=== PATIENT | female | born 1985 | race Caucasian/White ===

== ENCOUNTER 2016-09-16 09:31 | Emergency (ER) | payer BC, OTHER ==
--- NOTE | 2016-09-16 10:18 | UC ---
Syncope/New Syncope HPI - HPI Summary HPI Summary: complaint of falling this morning approx 4:00 this morning was walking to the bathroom and had syncopal episode woke up and felt like she was in a tunnel felt disoriented, felt shaking and cold ,had a headache unwitnessed event layed on the floor for a while and then went back to sleep until 8:00 AM small laceration on her right elbow at this time she feels nauseated, weak ,"out of sorts" fatigued, dizziness, dull headache in entire head- no photophobia hx of syncopal episodes and seizures in her teen years similiar experiences- full workup at [facility] with no answer to etiology of seizures- no seizure 14 years ago hx of syncopal episodes in the morning- last episode 6 years ago - History Of Current Complaint Chief Complaint: UCGeneralIllness Stated Complaint: CUT ON ARM-FALL Time Seen by Provider: 09/16/16 10:09 Hx Obtained From: Patient Hx Last Menstrual Period: pt has an IUD and does not get a menses - Allergies/Home Medications Allergies/Adverse Reactions: Allergies Allergy/AdvReac Type Severity Reaction Status Date / Time No Known Allergies Allergy Verified 09/16/16 09:48 Home Medications: Home Medications ALPRAZolam TAB* [Xanax TAB*] 0.25 mg PO Q6H PRN 09/16/16 [History Confirmed ] Aspirin TAB* 325 mg PO DAILY PRN 09/16/16 [History Confirmed 09/16/16] Escitalopram Oxalate [Lexapro] 20 mg PO DAILY 09/16/16 [History Confirmed ] SUMAtriptan TAB* [Imitrex TAB*] 100 mg PO SEE INSTRUCTIONS PRN 09/16/16 [ History Confirmed 09/16/16] hydrOXYzine HCL TAB* [Atarax TAB*] 10 mg PO QID PRN 09/16/16 [History Confirmed 09/16/16] PMH/Surg Hx/FS Hx/Imm Hx Previously Healthy: Yes Neurological History Of: Reports: Seizures - syncopla episodes, Migraine - Surgical History Surgical History: None - Family History Known Family History: Positive: Other - mother with crohn's disease Negative: Hypertension, Diabetes, Seizure Disorder - Social History Occupation: Employed Full-time Lives: Alone Alcohol Use: None Substance Use Type: None Smoking Status (MU): Never Smoked Tobacco Review of Systems Constitutional: Fatigue Skin: Negative Eyes: Negative ENT: Negative Respiratory: Negative Cardiovascular: Negative Gastrointestinal: Other - nausea Genitourinary: Negative Motor: Negative Neurovascular: Negative Musculoskeletal: Negative Neurological: Headache Psychological: Negative All Other Systems Reviewed And Are Negative: Yes Physical Exam Triage Information Reviewed: Yes Appearance: No Pain Distress, Well-Nourished Vital Signs: Initial Vital Signs Temp 98.9 F 09/16/16 09:36 Pulse 59 09/16/16 09:36 Resp 14 09/16/16 09:36 BP 123/63 09/16/16 09:36 Pulse Ox 100 09/16/16 09:36 Vital Signs Reviewed: Yes Eyes: Positive: Conjunctiva Clear, Other: - PERRL, EOMI ENT: Positive: Pharynx normal, TMs normal Neck: Positive: Supple, No Lymphadenopathy Respiratory: Positive: Lungs clear, Normal breath sounds, No respiratory distress Cardiovascular: Positive: RRR, No Murmur, Pulses Normal, Brisk Capillary Refill Abdomen Description: Positive: Nontender, No Organomegaly, Soft Bowel Sounds: Positive: Present Musculoskeletal: Positive: No Edema Neurological: Positive: Alert, Other: - CN ll-Xll intact, negative Rhomberg Psychological Exam: Normal Skin Exam: Normal - elbow with 2 abrasions [id number], 3mm x 6mm- doesn't require closure Skin: Positive: Other Syncope Course/Dx - Course Course Of Treatment: exam completed. Orthostatic VS normal. ECG shows sinus bradycardia with ST elebvation probale normal early replorization pattern. CT scan without acute abnormalities. discussed case with Dr Balderas- will transfer to higher level of care-needs labwork. - Differential Dx/Diagnosis Differential Diagnosis/HQI/PQRI: Dysrhythmia, Hypovolemia, Seizure, Vasovagal Episode Provider Diagnoses: synocpal episode - Physician Notification/Consults Discussed Patient Care With: Shaneka Agosto RN- no provider sybil in the Ed. Dr Balderas Time Discussed With Above Provider: 12:32 Discharge - Discharge Plan Condition: Stable Disposition: TRANS HIGHER L OF CARE FAC Referrals: Salud Morataya MD [Primary Care Provider] -
[2016-09-16 10:52] VITALS: BP 128/64
--- NOTE | 2016-09-16 11:29 | RAD ---
INDICATION: Syncope, headache. COMPARISON: There are no prior studies available for comparison. TECHNIQUE: Contiguous axial sections of the brain were obtained from the skull base to the vertex without contrast. FINDINGS: The ventricles, cisterns and sulci are within normal limits. No significant focal abnormality or mass effect is seen. There is no evidence for hemorrhage. No significant focal osseous abnormality is seen. The visualized portion of the paranasal sinuses and mastoid air cells appear clear. IMPRESSION: NO EVIDENCE FOR ACUTE INTRACRANIAL ABNORMALITY.
== END 2016-09-16 12:35 | disposition short-term general hospital (02) ==
LOC: UCCORT 09:31
DX: R55 Syncope and collapse (principal); S50.311A Abrasion of right elbow, initial encounter; W18.30XA Fall on same level, unspecified, initial encounter; Y93.01 Activity, walking, marching and hiking; Y92.009 Unspecified place in unspecified non-institutional (private) residence as the place of occurrence of the external cause; R51 Headache
CPT/HCPCS: 70450; 93005; 99212; G0463

== ENCOUNTER 2016-09-16 13:26 | Observation (INO) | payer BC ==
[2016-09-16 17:56] LABS: Hematocrit 42 % (35-47); Mean Corpuscular HGB Conc 33 g/dl (31-36); Mean Corpuscular Hemoglobin 31 pg (27-31); Mean Corpuscular Volume 94 fL (80-97); Mean Platelet Volume 10 um3 (7.4-10.4); Red Blood Count 4.51 10^6/ul (4.0-5.4); Red Cell Distribution Width 14 % (10.5-15); White Blood Count 4.7 10^3/ul (3.5-10.8)
[2016-09-16 18:03] LABS: Urine Bilirubin Negative (Negative); Urine Glucose Negative (Negative); Urine Nitrite Negative (Negative)
--- NOTE | 2016-09-16 18:08 | ED ---
Addendum entered and electronically signed by Patrick Feldman MD 09/17/16 22: 54: ED Addendum Addendum: C Addendum entered and electronically signed by Abi Taylor PA 09/16/16 19: 59: ED Addendum Addendum: Patient is physically fit, works-out often and drinks gallons of water daily, including today 09/16/16. Original Note: Syncope/Near Syncope - HPI Summary HPI Summary: 30 female presents from [facility] with complaints of fainting this morning around 4am 09/16/16. She states she got out of bed and went to walk to the bathroom and had a syncopal episode that was unwitnessed. During the fall patient sustained a small 2cm superficial laceration to her right elbow that she thinks she may have hit on the mirror. She doesn't remember anything besides waking up on the floor of her bedroom. She went back to bed and slept until 8am however throughout the day she continued to feel, weak, light-headed and "out of sorts" . She was advised to be seen by a doctor by her boss which made her go to . She currently complains of a headache, similar to her frequent headaches dull, entire head and no photophobia. She admits to a history of syncopal episodes back when she was a teenager. States she had one grand mal seizure when she was 15 years old however has not since. Since the seizure she suffered from syncopal episodes that dissipated throughout the years. Her last episode of syncope being 6 years ago. Admits to feeling weak and noticing her heart rate being in the 40's for the past few weeks. She works-out often and states she feels light-headed and as though her heart rate doesn't increase appropriately. Episodes of feeling weak, diaphoretic and light-headed occur a few times a month per patient, however, rest makes her feel better and she does not experience episodes of syncope during these times. Denies recent illness, difficulty breathing, SOB, or chest pain at this time. Had CT and EKG while at urgent care. CT was unremarkable and EKG showed NS bradycardia. Laceration was also cleaned, steri-stripped and bandaged at . Orthostatic BP was also taken at and numbers appeared in normal range. - - History Of Current Complaint Chief Complaint: EDSyncope Time Seen by Provider: 09/16/16 17:08 Hx Obtained From: Patient Onset/Duration: Sudden Onset Context: Unwitnessed, Loss Of Consciousness Activity At Onset: Exertion - walking to bathroom from bed Associated Head Trauma: No Aggravating Factor(s): Exertion Alleviating Factor(s): Rest Associated Signs And Symptoms: Diaphoresis, Dizzy, Headache, Lightheadedness, Weakness - Risk Factors Cardiac Risk Factors: Negative - Allergies/Home Medications Allergies/Adverse Reactions: Allergies Allergy/AdvReac Type Severity Reaction Status Date / Time No Known Allergies Allergy Verified 09/16/16 09:48 PMH/Surg Hx/FS Hx/Imm Hx Previously Healthy: Yes Neurological History: Reports: Hx Migraine, Hx Seizures - syncopla episodes Psychiatric History: Reports: Hx Anxiety, Hx Eating Disorder Infectious Disease History: No Infectious Disease History: Denies: Traveled Outside the [place] in Last 30 Days - Family History Known Family History: Positive: Other - mother with crohn's disease Negative: Hypertension, Diabetes, Seizure Disorder - Social History Alcohol Use: None Substance Use Type: Reports: None Smoking Status (MU): Never Smoked Tobacco Review of Systems Positive: Fatigue, Skin Diaphoresis Eyes: Negative ENT: Negative Cardiovascular: Negative Respiratory: Negative Gastrointestinal: Negative Genitourinary: Negative Musculoskeletal: Negative Skin: Negative Positive: Headache Psychological: Normal All Other Systems Reviewed And Are Negative: Yes Physical Exam Triage Information Reviewed: Yes Vital Signs On Initial Exam: Initial Vitals Temp Pulse Resp BP Pulse Ox 98.6 F 77 16 126/71 100 09/16/16 13:45 09/16/16 13:45 09/16/16 13:45 09/16/16 13:45 09/16/16 13:45 previous vitals of bradycardia noted. Vital Signs Reviewed: Yes Appearance: Positive: Well-Appearing - appears fatigued, laying in hospital bed , No Pain Distress, Well-Nourished Skin: Positive: Warm, Skin Color Reflects Adequate Perfusion, Dry, Other - 2 cm superficial laceration on right elbow steri-stripped and bandaged at urgent care Head/Face: Positive: Normal Head/Face Inspection. Negative: Cephalohematoma Eyes: Positive: Normal, EOMI, FERNANDO, Conjunctiva Clear ENT: Positive: Normal ENT inspection, Hearing grossly normal Dental: Negative: Cervical Lymphadenopathy Neck: Positive: Supple, Nontender, No Lymphadenopathy Respiratory/Lung Sounds: Positive: Clear to Auscultation, Breath Sounds Present Cardiovascular: Positive: Normal, Pulses are Symmetrical in both Upper and Lower Extremities, Bradycardia. Negative: Murmur, Leg Edema Left, Leg Edema Right Abdomen Description: Positive: Nontender, No Organomegaly, Soft Bowel Sounds: Positive: Present Musculoskeletal: Positive: Normal, Strength/ROM Intact Neurological: Positive: Normal, Sensory/Motor Intact, Alert, Oriented to Person Place, Time, CN Intact II-III, Reflexes Intact, NV Bundle Intact Distally, Normal Gait - heart rate elevated upon standing and walking, Heel to Toe - normal, Finger to Nose - normal, Speech Normal, Other - normal neuro PE. Negative: Rhomberg Psychiatric: Positive: Normal, Affect/Mood Appropriate Diagnostics - Vital Signs Vital Signs Temp Pulse Resp BP Pulse Ox 09/16/16 16:15 99.4 F 49 16 112/57 100 09/16/16 15:14 99.0 F 51 16 121/59 100 09/16/16 13:45 98.6 F 77 16 126/71 100 - Laboratory Lab Results: Lab Results 09/16/16 09/16/16 Range/Units 13:53 17:45 WBC 4.7 (3.5-10.8) 10^3/ul RBC 4.51 (4.0-5.4) 10^6/ul Hgb 14.0 (12.0-16.0) g/dl Hct 42 (35-47) % MCV 94 (80-97) fL MCH 31 (27-31) pg MCHC 33 (31-36) g/dl RDW 14 (10.5-15) % Plt Count 183 (150-450) 10^3/ul MPV 10 (7.4-10.4) um3 Neut % (Auto) 47.4 (38-83) % Lymph % (Auto) 43.0 (25-47) % Wake % (Auto) 5.7 (1-9) % Eos % (Auto) 2.9 (0-6) % Baso % (Auto) 1.0 (0-2) % Absolute Neuts (auto) 2.2 (1.5-7.7) 10^3/ul Absolute Lymphs (auto) 2.0 (1.0-4.8) 10^3/ul Absolute Monos (auto) 0.3 (0-0.8) 10^3/ul Absolute Eos (auto) 0.1 (0-0.6) 10^3/ul Absolute Basos (auto) 0 (0-0.2) 10^3/ul Absolute Nucleated RBC 0 10^3/ul Nucleated RBC % 0.1 Urine Color Yellow Urine Appearance Cloudy Urine pH 6.0 (5-9) Ur Specific [place] 1.011 (1.010-1.030) Urine Protein Negative (Negative) Urine Ketones Negative (Negative) Urine Blood Negative (Negative) Urine Nitrate Negative (Negative) Urine Bilirubin Negative (Negative) Urine Urobilinogen Negative (Negative) Ur Leukocyte Esterase Negative (Negative) Urine Glucose Negative (Negative) Urine Ascorbic Acid * H (Negative) Result Diagrams: 09/16/16 17:45 09/16/16 17:45 Lab Statement: Any lab studies that have been ordered have been reviewed, and results considered in the medical decision making process. Course/Dx Course Of Treatment: Another EKG was ordered, showing NS Kaz. CBC, CMP, UA, Preg Test, Lactic acid, Creatinine and TSH ordered. All lab results were normal. Creatinine was slightly elevated. CT of head done at [facility] and was unremarkable. Laceration was also steri-stripped and bandaged. Given Ibuprofen for headache. While nurse was in room she noted her HR to be 38- 39bpm that lasted around 1-[address] Anaya cardiology who stated she was safe to discharge and follow-up with Cardiology outpatient. However, due to patient living at home on her own, symptomatic bradycardia, syncope and HR's around 38bpm hospitalist was consulted. Hospitalist, Dr Dhillon, agreed to observe patient over night and have cardiology see her tomorrow 09/17/16. Patient also agreed to plan and would feel more comfortable staying here as well. - Diagnoses Differential Diagnosis/HQI/PQRI: Positive: Dysrhythmia, Hypoglycemia, Hypovolemia, Seizure, Vasovagal Episode, Other - seizure Provider Diagnoses: Bradycardia, Syncope Discharge - Discharge Plan Condition: Stable Disposition: ADMITTED TO [facility] Referrals: Salud Morataya MD [Primary Care Provider] -
[2016-09-16 18:12] LABS: ALT 27 U/L (7-52); AST 28 U/L (13-39); Albumin 4.6 g/dL (3.2-5.2); Alkaline Phosphatase 39 U/L (34-104); Anion Gap 5 mmol/L (2-11); BUN/Creatinine Ratio 18.6 (8-20); Blood Urea Nitrogen 19 mg/dL (6-24); CO2 Carbon Dioxide 28 mmol/L (22-32); Calcium 9.8 mg/dL (8.6-10.3); Chloride 103 mmol/L (101-111); EGFR Non-African American 64.5 (>60); Globulin 2.6 g/dL (2-4); Glucose 92 mg/dL (70-100); Magnesium 2.2 mg/dL (1.9-2.7); Sodium 136 mmol/L (133-145); Total Protein 7.2 g/dL (6.4-8.9)
[2016-09-16 18:37] LABS: TSH (Thyroid Stimulating Horm) 2.58 mcIU/mL (0.34-5.60)
[2016-09-16 18:46] LABS: Creatine Kinase 195 U/L (10-223)
[2016-09-16] MEDS ORDERED: Ibuprofen TAB* 800 MG PO ONE (19:02)
[2016-09-16] MEDS ORDERED: ALPRAZolam TAB* 0.25 MG PO PRN (20:14)
[2016-09-16] MEDS ORDERED: hydrOXYzine HCL TAB* 10 MG PO PRN (20:14)
[2016-09-16] MEDS ORDERED: Acetaminophen TAB* 325 MG PO PRN (20:15)
[2016-09-16] MEDS ORDERED: NS 0.9% 1000 ML* 1,000 ML IV SCH (20:15)
[2016-09-16] MEDS ORDERED: Ondansetron INJ* 2 MG/ML VIAL IV PRN (20:15)
[2016-09-16] MEDS ORDERED: Citalopram TAB* 40 MG PO SCH (21:45)
--- NOTE | 2016-09-16 22:55 | HP ---
HISTORY AND PHYSICAL: DATE OF ADMISSION: 09/16/16 ATTENDING PHYSICIAN: Pipo Trujillo MD * (as dictated by Daphne Rosa NP ). CONSULTING PHYSICIAN: Salomón Anaya MD, Cardiology. PRIMARY CARE PHYSICIAN: Dr. Morataya, [facility]. CHIEF COMPLAINT: Syncope. HISTORY OF PRESENT ILLNESS: Ms. Diaz is a very pleasant 30-year-old female who presented to the ED today for further evaluation of a syncopal episode that occurred this morning at the patient's home. 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 She actually works in [employer] at [employer]. She is able to describe in great detail the episodes today as well as the history surrounding these episodes. She reports at approximately 3:55 this morning, she woke up to her alarm and states that she woke up with a minor headache. She reports going to the bathroom, weighing herself and then standing in front of the dresser in order to get dressed she reports a feeling of "going to pass out" and then describes this feeling where she was standing and then waking up and finding herself on the floor with her feet facing the opposite direction. When she awoke, she states that she was on the floor for quite some time and was described feeling shaky and cold, having head pain and feeling weak and out of sorts. She went back to bed and then woke up again around 7 o'clock, still feeling shaky and weak at this point. She did check her blood sugar and states that her blood glucose this morning was 83. She called work who recommended that she get evaluated. The patient states that between the time she woke up, which was 3:55 a.m. and the time that she remembers looking her clock again after the syncopal episode, it was approximately 4:20 a.m., but she is unable to say how long she was out for. She states that she took herself to urgent care after getting dressed and then eating breakfast and states that she arrived there approximately 9:30 this morning. She states that she usually knows when she is going to pass out or is close to passing out and describes a prodrome of feeling hot and diaphoretic. She also describes nausea and stomach ache, which then progresses to alterations in her hearing. Usually, she states this happens over several seconds to minutes and she can sit down and put her feet up and make the symptoms go away. However, this most recent episode came on very suddenly and she was unable to safely seat herself. The last syncopal episode occurred approximately 6 years ago per the patient. She also reports around the age of 17 or 16 waking up with a stomach ache. At that point, she states that her mother witnessed her having a grand mal seizure, which occurred over 3 to 4 minutes. She describes similar symptoms preceding the event. However, subsequent workup was unable to trigger or reproduce these symptoms. She states that during her evaluation around age 16, she had an EEG, an EKG, a Holter monitor and tilt table testing along with some other testing and labs that were all negative. This testing was done at [facility]. Over the past 2 to 3 weeks, the patient describes a "fuzzy feeling" when standing. On one episode when she was at work, she took her blood pressure and states that while she was standing her blood pressure was 96/48 and her heart rate was 46. She also reports occasional fluttering and the feeling where she feels as if "her heart is beating really hard." She states that she is very into exercise and reports daily exercise and lifting. She does participate in body building competitions. She reports drinking about a gallon of fluid each day, which usually consists of water and Powerade. She also drinks decaf tea. She does eat every 2 to 3 hours. Her normal resting heart rate per the patient is between 58 and 60. However, she does note that when she is working really hard that she can get her heart rate usually above 60s in some instances and she had noted that that was strange. In terms of syncopal history, she states that she has only had 1 to 2 episodes in the past 6 months and that since she was a teenager and had the previous episodes with seizure and syncope that has gradually decreased. She states that she has an IUD, does not get regular menses. She does report that she gets occasional spotting every 6 months or more. However, she does report approximately 2 weeks ago that she had some significant bleeding that lasted longer than usual. She denies any recent fevers or illness. She denies chest pain, although she does state that she does have "chest tightness and heaviness " that she attributes to anxiety. She denies shortness of breath or cough. She denies abdominal pain, nausea, vomiting, diarrhea. She denies any dysuria, focal weakness or sensory loss. She denies any changes to her vision or hearing. She denies any new joint pain, muscle pain, rashes, or lesions. She does admit to anxiety and depression. PAST MEDICAL HISTORY: Significant for: 1. Anxiety. 2. Depression. 3. Headaches. 4. Kidney stones. 5. "History of right kidney dilation in the distal tubules." This was worked up at [facility]. MEDICATIONS: 1. Lexapro 20 mg daily. 2. Xanax 0.25 mg t.i.d. p.r.n. 3. Hydroxyzine 10 mg at bedtime p.r.n. insomnia. 4. Imitrex 100 mg p.r.n. 5. Intrauterine device. 6. Glutamine supplement. 7. Creatine supplement. 8. Multivitamin. 9. Vitamin D [id number] supplement. 10. Vitamin B [id number] supplement. 11. Protein powder. 12. Glutamine. ALLERGIES: SULFA DRUGS, which she states triggers migraines. FAMILY HISTORY: She reports father with high cholesterol and mother with a history of benign tumor, fibromyalgia, rheumatoid arthritis, anxiety and depression. She reports a paternal grandfather with a history of bradycardia and other heart problems and a maternal grandmother with a history of cancer. SOCIAL HISTORY: She denies tobacco, alcohol, or illicit drug use. 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 She is single. She lives alone. She lists her parents, Dipika and Awais Diaz, who currently reside at [place] as her surrogate decision makers and healthcare proxy. REVIEW OF SYSTEMS: A 14-point review of systems was completed. All pertinent positives and negatives are included in the HPI. All those not mentioned are negative. PHYSICAL EXAMINATION GENERAL: Tahira Diaz is a 30-year-old female, who is sitting up in the ED stretcher. She is well developed, well nourished, and pleasant and cooperative. She is in no apparent distress. VITAL SIGNS: Temperature 99.2, heart rate 47, respiratory rate 12, blood pressure 124/68, and O2 saturation is 99% on room air. HEENT: Head is atraumatic, normocephalic. Face is symmetrical. Pupils are equal, round, and reactive to light. Extraocular movements are intact. Sclerae are anicteric. External ears and nose are normal. Oral mucosa appears moist. There is no oropharyngeal erythema or exudate. NECK: Neck is supple. No lymphadenopathy noted. No JVD noted. RESPIRATORY: Lungs are clear to auscultation bilaterally. There is no accessory muscle use. CARDIAC: S1, S2 heart sounds. Regular rate and rhythm. Apical pulse rate is 46. No murmurs, rubs, or gallops. There is no lower extremity edema. Peripheral pulses are 2+. ABDOMEN: Soft, nontender, nondistended. Bowel sounds are present times all 4 quadrants. MUSCULOSKELETAL: There is no clubbing or cyanosis. The patient has full range of motion. NEURO: Cranial nerves II through XII are grossly intact. She is able to move all extremities and sensation is intact to light touch to lower extremities. PSYCH: She is alert and oriented x3. Her affect is appropriate. SKIN: Appears grossly intact. The patient has abrasion to the right elbow. LABORATORY DATA AND DIAGNOSTIC STUDIES: CBC: WBC 4.7, hemoglobin 14.0, hematocrit 42, platelet count 183. CMP: Sodium 136, potassium 4.0, chloride 103, carbon dioxide 28, BUN 19, creatinine 1.02, glucose 92. Lactic acid 0.6, calcium 9.8, magnesium 2.20. Total bilirubin 0.6, AST 28, ALT 27, alk phos 39. Total CK 195. Troponin 0. Albumin 4.6. TSH 2.58. Urinalysis is unremarkable. CT of the brain taken earlier at urgent care shows no evidence for acute intracranial abnormality. EKG shows sinus bradycardia and ST elevation with probable normal repolarization pattern. EKGs are similar in appearance. No previous EKGs on record. Old medical records were reviewed. ASSESSMENT AND PLAN: Ms. Diaz is a 30-year-old female with past medical history significant for anxiety, depression, and headaches as well as remote history of seizure and syncope, who presents today to the ED for evaluation of a syncopal episode. We will admit her under OBV status to the telemetry unit. The plan is as follows: 1. Syncope. Admit to telemetry. Obtain orthostatic vital signs and echocardiogram in the morning. I will add on HCG quantitative; however, after adding additional lab, I do see that the patient had a urine dipstick test that was negative. TSH is also normal. Given the patient's story, it does appear that she does have some orthostasis and given that she does exercise regularly, she may have lower resting heart rates than she realizes. However, given that she is complaining of syncope and is also reported to have had some dizziness and diaphoresis in the ER while she was bradycardic, it is definitely watching her overnight and obtaining further testing to see if her bradycardia is contributing to her symptoms. I did briefly discuss the patient with Dr. Anaya and asked for a consult. He did feel that this is not likely related to her bradycardia; however, he does agree with an echocardiogram and monitoring on telemetry. I did look at her home medications of Lexapro, hydroxyzine and alprazolam, which she has been on for quite some time. They do have a very low percentage of causing these symptoms; however, it seems less likely. Additionally, we will trend the patient's troponins. 2. Elevated creatinine. The patient's creatinine is mildly elevated. She states that this is normal and appears to be improved from previous labs at [place]. This may be secondary to the supplements that she does take as well as kidney stones. She states that her urologist and rn employee health from [place] stated that most of this was likely due to prerenal causes. She does appear to be pretty well hydrated; however, I will give her 1 L of fluids and recheck her BMP in the morning. 3. Remote history of seizure. It does not appear to be an active issue. I will place the patient on seizure precautions. However, she is not on any seizure medications and her story does not appear consistent with seizure as she has pretty good recall of the events; however, we will continue to monitor closely. 4. Anxiety. Continue p.r.n. alprazolam. 5. Depression. Continue Lexapro. 6. FEN. The patient is ordered 1 L of IV fluids as well as regular diet. 7. DVT prophylaxis. The patient is ordered SCDs and is encouraged to have early ambulation. 8. Code status. She is a full code. 9. Disposition. Admit to telemetry ON OBV status, likely discharge to home when medically stable. TIME SPENT: Time spent on this admission was approximately 60 minutes, more than half the time was spent [id number] with the patient obtaining history and physical, performing physical examination, and reviewing the plan of care. Plan of care was also reviewed with my attending, Dr. Trujillo, who is in agreement. DAPHNE ROSA NP CC: Dr. Morataya, [facility] * [id number]/CPS #: [id number] MTDD
[2016-09-17 01:51] LABS: BUN/Creatinine Ratio 22.3 (8-20); EGFR African American 82.1 (>60); EGFR Non-African American 63.8 (>60); Potassium 3.8 mmol/L (3.5-5.0)
[2016-09-17 08:34] VITALS: BP 111/64
--- NOTE | 2016-09-17 10:06 | ECHO ---
Patient: DOREEN SWENSON [facility] Rec#: [id number] : 1985 Date: 09/17/2016 Age: 30y Height: 160.02 cm / 63.0 in Weight: 58.97 kg / 130.0 lbs Sex: F BSA: 1.61 Room#: 442 Admit Date#: 09/16/2016 Type: Inpatient Referring: June Ashton Reading: Valentino Carroll MD Early Childhood Director: Skylar Craig Early Childhood Director: Lilia Daniel RN RDCS CC: Hood PATRICIA, [facility] Transthoracic Echocardiogram Indication: Syncope, Bradycardia BP: 100/51 HR: 43 Rhythm: Bradycardia Findings History: Anxiety/depression, headaches, seizures, and syncope. Technical Comments: The study quality is good. Completed at 0915. Left Ventricle: The left ventricular chamber size is normal. Left ventricular systolic function is at the lower limits of normal. The estimated ejection fraction is 50-55%. Normal left ventricular diastolic filling is observed. Left Atrium: The left atrial chamber size is normal. Right Ventricle: Moderator Band present. The right ventricular cavity size is normal. The right ventricular global systolic function is low normal. Right Atrium: The right atrium is slightly dilated. Aortic Valve: The aortic valve is trileaflet. There is no evidence of aortic valve thickening. There is a trace of aortic regurgitation. There is no evidence of aortic stenosis. Mitral Valve: The mitral valve leaflets appear normal. The mitral valve leaflets are mildly thickened. There is a trace of mitral regurgitation. There is no evidence of mitral stenosis. Tricuspid Valve: The tricuspid valve leaflets are normal. There is trace to mild tricuspid regurgitation. No pulmonary hypertension is noted. There is no tricuspid stenosis. Pulmonic Valve: The pulmonic valve appears normal. There is mild pulmonic regurgitation. There is no pulmonic stenosis. Pericardium: There is no pericardial effusion. Aorta: There is no dilatation of the ascending aorta. There is no dilatation of the aortic arch. There is no dilation of the aortic root. Pulmonary Artery: The main pulmonary artery appears normal. Venous: The inferior vena cava appears normal in size. There is a greater than 50% respiratory change in the inferior vena cava dimension. Conclusions The left ventricular chamber size is normal. Left ventricular systolic function is at the lower limits of normal. The estimated ejection fraction is 50-55%. Normal left ventricular diastolic filling is observed. The right ventricular global systolic function is low normal. No significant valvular disease: There is a trace of aortic regurgitation. There is a trace of mitral regurgitation. There is trace to mild tricuspid regurgitation. There is mild pulmonic regurgitation. No reports of prior studies offered for comparison. Measurements Name Value Normal Range RVIDd (AP) 2D 3 cm (0.9 - 2.6) RVDdMajor (2D) 4 cm (2.2 - 4.4) RAd ISD 4CH 4.8 cm (3.4 - 4.9) RA (A4C)W 4.8 cm (2.9 - 4.6) IVSd (2D) 0.9 cm (0.6 - 1) LVPWd (2D) 0.7 cm (0.6 - 1) LVIDd (2D) 5.2 cm (3.6 - 5.4) LVIDs (2D) 3.5 cm - LV FS (2D) 33 % (25 - 45) Aortic Annulus 1.8 cm (1.4 - 2.6) Ao root diameter (2D) 2.5 cm (2.1 - 3.5) Ascending Ao 2.2 cm (2.1 - 3.4) Aortic arch 1.8 cm (1.8 - 3.4) LA dimension (AP) 2D 3.5 cm (2.3 - 3.8) LAd ISD 4CH 5 cm (2.9 - 5.3) LA ISD 4CH W 3.7 cm (2.5 - 4.5) Name Value Normal Range LA ESV SP 4CH (A/L) 42 ml - LA ESV SP 2CH (A/L) 66 ml - LA ESV BP (A/L) 53 ml - LA ESV BP (A/L) index 33 ml/m2 - LA ESV SP 4CH (MOD) 36 ml - LA ESV SP 2CH (MOD) 62 ml - Name Value Normal Range MV E-wave Vmax 0.89 m/sec - MV deceleration time 217 msec - MV A-wave Vmax 0.27 m/sec - MV E:A ratio 3.3 ratio - LV septal e' Vmax 0.14 m/sec - LV lateral e' Vmax 0.21 m/sec - LV E:e' septal ratio 6.4 ratio - LV E:e' lateral ratio 4.2 ratio - Name Value Normal Range AV Vmax 1.5 m/sec - AV VTI 38.01 cm - AV peak gradient 9.24 mmHg - AV mean gradient 5.67 mmHg - LVOT Vmax 1.5 m/sec - LVOT VTI 30.83 cm - LVOT peak gradient 9.05 mmHg - LVOT mean gradient 3.82 mmHg - MAYNOR Vmax 1.06 m/sec - Name Value Normal Range TR Vmax 2.1 m/sec - TR peak gradient 18 mmHg - RAP 3 mmHg - RVSP 21 mmHg - IVC diameter 1.4 cm - Name Value Normal Range PV Vmax 0.96 m/sec - PV peak gradient 3.65 mmHg -
--- NOTE | 2016-09-17 11:55 | PN ---
Subjective Date of Service: 09/17/16 Interval History: Patient seen and examined at bedside. Pt denies further symptoms of dizziness or lightheadedness. Denies fever, chills, shortness of breath, chest discomfort , N/V/D. Pt feels that she drank her normal amount of liquids the day prior to her admission and doesn't feel that she was dehydrated. Pt states that her last creatinine was 1.4 and BUN 35. Tele: Sinus alban, rate 31-50's. Family History: Unchanged from Admission Social History: Unchanged from Admission Past Medical History: Unchanged from Admission Objective Active Medications: Acetaminophen (Tylenol Tab*) 650 mg PO Q4H PRN Reason: FEVER/PAIN Alprazolam (Xanax Tab*) 0.25 mg PO Q8H PRN Reason: ANXIETY Citalopram Hydrobromide (Celexa Tab*) 40 mg PO 2100 BAUDILIO Hydroxyzine HCl (Atarax Tab*) 10 mg PO BEDTIME PRN Reason: SLEEP Ondansetron HCl (Zofran Inj*) 4 mg IV Q6H PRN Reason: NAUSEA Vital Signs 09/16/16 09/16/16 09/16/16 21:21 21:30 21:48 Temperature 98.6 F Pulse Rate 44 54 Respiratory 16 14 Rate Blood Pressure 112/60 123/74 (mmHg) O2 Sat by Pulse 98 Oximetry 09/16/16 09/17/16 09/17/16 23:32 01:52 03:26 Temperature 98.5 F 98.6 F Pulse Rate 43 50 Respiratory 16 16 Rate Blood Pressure 104/54 100/47 100/51 (mmHg) O2 Sat by Pulse 98 100 Oximetry 09/17/16 09/17/16 06:36 07:17 Temperature 98.1 F Pulse Rate 42 Respiratory 16 16 Rate Blood Pressure 111/64 (mmHg) O2 Sat by Pulse 100 Oximetry Oxygen Devices in Use Now: None Appearance: NAD, sitting up on the side of the bed. Eyes: No Scleral Icterus, PERRLA Ears/Nose/Mouth/Throat: NL Teeth, Lips, Gums Neck: NL Appearance and Movements; NL JVP, Trachea Midline Respiratory: Symmetrical Chest Expansion and Respiratory Effort, Clear to Auscultation Cardiovascular: NL Sounds; No Murmurs; No JVD, RRR Abdominal: NL Sounds; No Tenderness; No Distention - Bowel sounds present Extremities: No Edema Skin: No Rash or Ulcers Neurological: Alert and Oriented x 3, NL Muscle Strength and Tone Lines/Tubes/Other Access: Clean, Dry and Intact Peripheral IV - site benign Nutrition: Taking PO's Result Diagrams: 09/16/16 17:45 09/17/16 01:22 Additional Lab and Data: Assess/Plan/Problems-Billing Assessment: Ms. Diaz is a 30 yo female with PMH significant for anxiety, depression, and headaches as well as a remote history of seizures and syncope, who presented to the ED from [facility] for evaluation of a syncopal episode. - Patient Problems (1) Syncope Code(s): R55 - SYNCOPE AND COLLAPSE SNOMED Code(s): 705286123 Comment: - Orthostatic VS prior to IVF, vital signs WNL - Echo WNL - No further symptoms of dizziness or lightheadedness - Troponins flat at 0.00 - Pt continues to be bradycardic, rate 31-50's - Cardiology consult, doesn't feel this is symptomatic bradycardia (2) Elevated serum creatinine Code(s): R79.89 - OTHER SPECIFIED ABNORMAL FINDINGS OF BLOOD CHEMISTRY SNOMED Code(s): 084114636 Comment: - Per Pt improved from previous labs outpatient - She follows with Urology and nephrology in [place] (3) History of seizure disorder Code(s): Z86.69 - PERSONAL HISTORY OF DIS OF THE NERVOUS SYS AND SENSE ORGANS SNOMED Code(s): 231325238 Comment: - Remote history of grand mal seizure, not currently on medication - No signs of seizure activity (4) Anxiety and depression Code(s): F41.9 - ANXIETY DISORDER, UNSPECIFIED; F32.9 - MAJOR DEPRESSIVE DISORDER, SINGLE EPISODE, UNSPECIFIED SNOMED Code(s): 580945252 Comment: - Continue Lexapro and as needed alprazolam (5) DVT prophylaxis Code(s): GMV3165 - SNOMED Code(s): 328665976 (6) Full code status Code(s): Z78.9 - OTHER SPECIFIED HEALTH STATUS SNOMED Code(s): 518080115 Status and Disposition: OBV. Stable for discharge to home today.
--- NOTE | 2016-09-17 12:47 | CONS ---
CC: Dr. Morataya, [place], [place]. CARDIOLOGY CONSULT REPORT: DATE OF CONSULT: 09/17/16. INDICATION FOR CONSULTATION: Bradycardia syncope. HISTORY OF PRESENT ILLNESS: The patient is a 30-year-old female with little past medical history, james lora came [facility] a syncopal episode. The patient states nicholas t she was at home, she was getting ready for work and she just came out of the bathroom, when she fe lt just a very slight lightheadedness and then woke up on the floor. Her time between the onset of symptoms and her syncopal episode was very brief as stated by the patient. The patient was able to get up. She did sustain some trauma to her elbow. She did check her blood sugar levels and was nor mal at 83, ultimately she talked to her supervisor anodizing who was a nurse and it was instructed to go [facility]. She prince herself to [facility] and then was transferred to the hospital. The patient does have a history of these episodes, patient has been diagnosed over 8 years ago with episodes of syncope. At that time there was some question whether there was seizure activity. The patient symptoms would be the onset of nausea and lightheadedness. She would get intense, sound in her ears and then would occasionally have a syncopal episode. Her work up at that time was unrema rkable. The patient states that the only change in her current situation is that her Lexapro had in creased from 10 mg a day to 20 mg a day. Her other medication had remained the same. PAST MEDICAL HISTORY: Significant for anxiety, depression, kidney stones, syncopal episodes. OUTPATIENT MEDICATIONS: Lexapro 20 mg a day, Xanax as directed, hydroxyzine 10 mg q.h.s., Imitrex 1 00 mg as needed, multivitamin a day. ALLERGIES: Intolerant to SULFA Medications. FAMILY HISTORY: His father had high cholesterol, mother has a history of rheumatoid arthritis. SOCIAL HISTORY: She works as a nurse at [employer]. She denies tobacco or alcohol use. REVIEW OF SYSTEMS: Is negative for fevers or chills. Negative for changes in bowel or bladder habit s. Negative for changes in weight. The patient does exercise vigorously atleast 6 times a day. PHYSICAL EXAMINATION: Height is 5 feet 3 inches, weight is 133 pounds. Temperature 98.5, heart rate is 43, respiratory rate is 16, oxygen saturation 98% on room air, blood pressure 104/54. She has n ormal orthostatics. Sclerae anicteric. Oropharynx is pink without erythema. Carotids are 2+ witho ut bruits. JVD is normal. Thyroid is normal. Cardiac Exam: S1, S2 without any murmurs, rubs or ga llops. PMI is normal. Lungs: Clear to auscultation. There is no dullness to percussion. Abdomen is soft, nontender, nondistended with normoactive bowel sounds. Extremities showed no edema. She h as 2+ pulses throughout. The patient is awake, alert and oriented. She moves all 4 extremities equ ally. LABORATORY STUDIES: Chemistries within normal limits. BUN 19, creatinine is 1, TSH is 2.58, tropon in are negative x3. CBC within normal limits. EKG shows sinus bradycardia. Otherwise unremarkable . Echocardiogram shows normal LV size and systolic function with no significant valvular abnormalit ies. IMPRESSION: This is a 30-year-old female who was admitted to the hospital with syncope and bradycar kurt. In general, I am not concerned about her bradycardia. The patient is well trained athlete and her low heart rate and blood pressure are reflective of that. The patient may have some degree of POTS that is leading to her syncope. Again patient had these sy mptoms 6 to 8 years ago. She has not had a syncopal episode in over 5 years. Her symptoms today ar e similar to the episode she had 5 years ago. I am not convinced that she has any significant arrhyt hmias associated with this. At this point, I do not think any other work up is necessary. If carroll ent has further episodes of syncope, there is medical therapy I would consider adding fludrocortison e to her regimen or beta-blockers for her POTS syndrome. If there is a strong concern for arrhythmia s I would consider long-term vent monitor. The patient will see him in followup on an as needed [place]. [id number]/[facility] #: [id number]
--- NOTE | 2016-09-18 21:37 | DS ---
DISCHARGE SUMMARY: DATE OF ADMISSION: 09/16/16 DATE OF DISCHARGE: 09/17/16 PRIMARY CARE PROVIDER: Dr. Morataya. ATTENDING PHYSICIAN: Dr. Monet Reddy * (dictated by Skylar Ghotra NP). PRIMARY DIAGNOSES: 1. Syncopal episode. 2. Elevated creatinine. SECONDARY DIAGNOSES: 1. Remote history of seizure disorder. 2. Anxiety. 3. Depression. CONSULTATIONS WHILE IN THE HOSPITAL: Dr. Salomón Anaya with Cardiology. STUDIES WHILE IN THE HOSPITAL: Transthoracic echocardiogram on 09/17/16. Canvass Manager's conclusion: The left ventricular chamber size is normal. Left ventricular systolic function is at the lower limits of normal. The estimated ejection fraction is 50% to 55%. Normal left ventricular diastolic filling is observed. The left ventricular global systolic function is low normal. No significant valvular disease; there is a trace aortic regurgitation, trace mitral regurgitation, [id number] tricuspid regurgitation, mild pulmonic regurgitation. No report of prior studies offered for comparison. DISCHARGE MEDICATIONS: Continued home medications: 1. Imitrex 100 mg oral as needed for migraine headache. 2. Hydroxyzine 10 mg oral 4 times daily as needed for sleep. 3. Xanax 0.25 mg oral every 6 hours as needed for anxiety. 4. Lexapro 20 mg oral daily. 5. Aspirin 325 mg oral daily as needed for headache. HISTORY OF PRESENT ILLNESS/HOSPITAL COURSE: Ms. Diaz is a 30-year-old female with past medical history significant for previous syncopal episodes and remote history of seizure disorder, who presented to the emergency room after a syncopal episode at home. According to the patient, she woke to get up for work and noted a minor headache. The patient went into the bathroom, weighed herself, in front of her dresser, getting dressed, and she reports a feeling of feeling of "going to passing out" and then the patient recalls waking up finding herself on the floor with her feet facing the opposite direction where she had been. The patient states that she was on the floor for quite some time , feeling cold and shaky, having a headache, and feeling weak and out of sorts. She went back to bed and again woke up after few hours later, continued to feel shaky and weak. The patient checked her blood glucose at home and it was 83. She called work and they recommended and that she be evaluated. The patient took herself to [facility] after getting dressed and eating breakfast. The patient reports generally knowing when she is going to pass out or is close to passing out and describes a prodrome of feeling hot and diaphoretic. The patient also described nausea and a stomachache which then progressed to alteration in her hearing. The patient states this usually happens over several seconds to minutes and she can sit down and put her feet up and make the symptoms go away. However, this most recent episode happened so suddenly that she was unable to safely get seated. Prior to this episode, the patient's last syncopal episode was approximately 6 years ago. It is to note that the patient also reports around age of 16 or 17, she woke up with a stomachache and mother witnessed a 3- to 4-minute grand mal seizure. However, subsequent workup was never able to trigger or reproduce her symptoms. The patient states that over the last few weeks, she has been feeling off on standing. She had her blood pressure checked while at work during the episode. While she was standing, her blood pressure was 96/48 and her heart rate was 46. The patient also reported occasional fluttering and feeling like her heart was beating really hard. The patient states that she is very active and exercises daily including cardiovascular exercises and weight lifting. The patient reports drinking at least a gallon of water a day in addition to Powerade. The patient reports a normal resting heart rate around 58 to 60, but has noticed lately that her heart rate is a little slower but is able to get her heart rate up over the 60s with exercise. She went to Urgent Care where she had a CT of her brain showing no acute finding. Based off her concern for the patient's presentation and symptoms, the Urgent Care Center recommended the patient present to the emergency room for further evaluation of her symptoms. While in the emergency room, she had an EKG showing a sinus bradycardia with slight ST elevation, which appeared to be normal repolarization pattern. The patient had no previous EKGs for comparison. Based off the patient's presentation for syncopal episode, the hospitalists were asked to evaluate the patient for admission. While in the hospital, the patient was monitored on telemetry. She was found to be mostly in the 40s to 50s and sinus bradycardia. The patient occasionally did have rates down as low as 31. The patient was seen in consultation with Cardiology who felt that that patient's symptoms could represent postural orthostatic tachycardia syndrome and they did not feel this was a symptomatic bradycardia. The patient underwent transthoracic echocardiogram with no acute findings. The patient has had no further symptoms. Her troponins were flat at 0.00. The patient was given the option to start the medication such as Florinef and she has declined at this time. The patient had orthostatic vital signs and was found to not have orthostatic hypotension, although said to taken prior to IV fluids. The patient was also noted to have an elevated creatinine. I suspect that this is related to the patient being dehydrated. She received a liter of fluids overnight and the patient's creatinine actually stayed about the same. According to the patient, her BUN and creatinine today are improved from previous ones done at [place]. The patient states TSH is within normal limits. Ms. Diaz is stable for discharge to home today. Vital signs are as follows: Temperature 98.1, heart rate 42, respiratory rate 16, O2 sat 100% on room air, blood pressure 111/64. DISCHARGE PLAN: Ms. Diaz will be discharged to home. ACTIVITY: As tolerated. DIET: Regular diet. She has been encouraged to stay hydrated and drink plenty of fluids. FOLLOWUP: The patient should follow up with the primary care provider, Dr. Morataya. She should call to set up an appointment. The patient should also follow with Cardiology as needed for further evaluation of postural orthostatic tachycardia syndrome or continued bradycardia. This is a summarized report of a complex medical history and hospital stay. For further details, please the entire medical record. TIME SPENT: Time for this discharge was 50 minutes, 25 minutes was spent face-to- face with the patient discussing discharge plans and instructions. CONDITION ON DISCHARGE: Stable. Reviewed by RUBEN MAYA 09/20/16 1349 CC: Dr. Morataya * [id number]/[facility] #: [id number] KEITH
== END 2016-09-17 14:20 | disposition home or self-care (01) ==
LOC: ED 13:26 → MEDTELE 20:06
PROVIDERS: ADMIT Hospitalist; ATTEND Hospitalist
DX: R55 Syncope and collapse (principal); G40.909 Epilepsy, unspecified, not intractable, without status epilepticus; F41.9 Anxiety disorder, unspecified; F32.9 Major depressive disorder, single episode, unspecified; Z79.82 Long term (current) use of aspirin; R51 Headache
CPT/HCPCS: 36415; 80048; 80053; 81003; 82550; 83605; 83735; 84443; 84484; 84702; 85025; 93005; 93306; 96374; 99283; A9270-GY; G0378

== ENCOUNTER 2016-12-23 19:36 | Emergency (ER) | payer BC ==
[2016-12-23 22:37] LABS: Hematocrit 42 % (35-47); Hemoglobin 13.8 g/dl (12.0-16.0); Mean Corpuscular HGB Conc 33 g/dl (31-36); Mean Corpuscular Hemoglobin 31 pg (27-31); Mean Corpuscular Volume 93 fL (80-97); Mean Platelet Volume 9 um3 (7.4-10.4); Red Blood Count 4.51 10^6/ul (4.0-5.4); Red Cell Distribution Width 14 % (10.5-15); White Blood Count 7.4 10^3/ul (3.5-10.8)
[2016-12-23 22:40] VITALS: BP 109/65
[2016-12-23 22:51] LABS: BUN/Creatinine Ratio 23.5 (8-20); EGFR Non-African American 53.6 (>60); Potassium 4.2 mmol/L (3.5-5.0)
--- NOTE | 2016-12-23 22:56 | ED ---
I, Oh,Sherin, scribed for Indra Morgan MD on 12/23/16 at 2228 . GI/ HPI - HPI Summary HPI Summary: This 31 y/o female presents to ED for coffee ground emesis in vomit last night. Pt informed her care team today around 1600 PM and subsequently referred to ED. PMHx includes anorexia and bulimia with ongoing treatment. Pt states that she self-induces vomiting about once a week. She did not vomit again today. Other PMHx includes anxiety/depression, migraine, and kidney stones. - History of Current Complaint Chief Complaint: EDNauseaVomitDiarrh Time Seen by Provider: 12/23/16 22:23 Stated Complaint: VOMITING BLOOD Hx Obtained From: Patient Onset/Duration: Started Days Ago, Atraumatic, Resolved Timing: Intermittent Current Severity: None Pain Intensity: 0 Location of Pain: None - Allergy/Home Medications Allergies/Adverse Reactions: Allergies Allergy/AdvReac Type Severity Reaction Status Date / Time No Known Allergies Allergy Verified 09/16/16 09:48 PMH/Surg Hx/FS Hx/Imm Hx Musculoskeletal History: Denies: Hx Osteoporosis Neurological History: Reports: Hx Migraine, Hx Seizures - syncopal episodes, grand mal seizure x1 Psychiatric History: Reports: Hx Anxiety, Hx Eating Disorder Infectious Disease History: Denies: Traveled Outside the [place] in Last 30 Days - Family History Known Family History: Positive: Other - mother with crohn's disease Negative: Hypertension, Diabetes, Seizure Disorder - Social History Alcohol Use: None Hx Substance Use: No Substance Use Type: Reports: None Hx Tobacco Use: No Smoking Status (MU): Never Smoked Tobacco Review of Systems Negative: Fever Positive: Vomiting - last night with coffee ground emesis, Nausea All Other Systems Reviewed And Are Negative: Yes Physical Exam Triage Information Reviewed: Yes Vital Signs On Initial Exam: Initial Vitals Temp Pulse Resp BP Pulse Ox 98.9 F 63 18 124/76 99 12/23/16 20:12 12/23/16 20:12 12/23/16 20:12 12/23/16 20:12 12/23/16 20:12 Vital Signs Reviewed: Yes Appearance: Positive: Well-Appearing, No Pain Distress, Thin Skin: Positive: Warm, Skin Color Reflects Adequate Perfusion Head/Face: Positive: Normal Head/Face Inspection Eyes: Positive: FERNANDO ENT: Positive: Hearing grossly normal Neck: Positive: Supple Respiratory/Lung Sounds: Positive: Clear to Auscultation, Breath Sounds Present Cardiovascular: Positive: Normal Abdomen Description: Positive: Nontender, Soft Bowel Sounds: Positive: Present Musculoskeletal: Positive: Strength/ROM Intact Neurological: Positive: Sensory/Motor Intact, Alert, Oriented to Person Place, Time Psychiatric: Positive: Affect/Mood Appropriate Diagnostics - Vital Signs Vital Signs Temp Pulse Resp BP Pulse Ox 12/23/16 20:12 98.9 F 63 18 124/76 99 - Laboratory Lab Results: Lab Results 12/23/16 12/23/16 Range/Units 22:30 22:30 WBC 7.4 (3.5-10.8) 10^3/ul RBC 4.51 (4.0-5.4) 10^6/ul Hgb 13.8 (12.0-16.0) g/dl Hct 42 (35-47) % MCV 93 (80-97) fL MCH 31 (27-31) pg MCHC 33 (31-36) g/dl RDW 14 (10.5-15) % Plt Count 212 (150-450) 10^3/ul MPV 9 (7.4-10.4) um3 Neut % (Auto) 51.6 (38-83) % Lymph % (Auto) 30.5 (25-47) % [place] % (Auto) 7.7 (1-9) % Eos % (Auto) 9.8 H (0-6) % Baso % (Auto) 0.4 (0-2) % Absolute Neuts (auto) 3.8 (1.5-7.7) 10^3/ul Absolute Lymphs (auto) 2.2 (1.0-4.8) 10^3/ul Absolute Monos (auto) 0.6 (0-0.8) 10^3/ul Absolute Eos (auto) 0.7 H (0-0.6) 10^3/ul Absolute Basos (auto) 0 (0-0.2) 10^3/ul Absolute Nucleated RBC 0 10^3/ul Nucleated RBC % 0.1 Sodium 135 (133-145) mmol/L Potassium 4.2 (3.5-5.0) mmol/L Chloride 104 (101-111) mmol/L Carbon Dioxide 26 (22-32) mmol/L Anion Gap 5 (2-11) mmol/L BUN 28 H (6-24) mg/dL Creatinine 1.19 H (0.51-0.95) mg/dL Est GFR ( Amer) 69.0 (>60) Est GFR (Non-Af Amer) 53.6 (>60) BUN/Creatinine Ratio 23.5 H (8-20) Glucose 91 (70-100) mg/dL Calcium 10.0 (8.6-10.3) mg/dL Pertinent Lab Values Are: WNL Result Diagrams: 12/23/16 22:30 12/23/16 22:30 Lab Statement: Any lab studies that have been ordered have been reviewed, and results considered in the medical decision making process. GIGU Course/Dx - Diagnoses Provider Diagnoses: Vomiting Discharge - Discharge Plan Condition: Stable Disposition: HOME Patient Education Materials: Acute Nausea and Vomiting (ED) Referrals: Salud Morataya MD [Primary Care Provider] - 2 Days The documentation as recorded by the Cuauhtemoc rodrigeuz Soohyun accurately reflects the service I personally performed and the decisions made by Eddie michaud David, MD.
== END 2016-12-23 23:07 | disposition home or self-care (01) ==
LOC: ED 19:36
DX: K92.0 Hematemesis (principal)
CPT/HCPCS: 36415; 80048; 85025; 99282